=== PATIENT | female | born 1970 | race Caucasian/White ===

== ENCOUNTER 2018-01-31 21:19 | Observation (INO) ==
--- NOTE | 2018-01-31 21:27 | Emergency Department Note ---
Disposition Clinical Impression: Chest pain, Palpitations Disposition: Admitted As Inpatient Condition: Good Referrals: Juan Daniel Carl MD [Non-Partnered Physician] - Chest Pain HPI - General Chief Complaint: ED Chest Pain Stated Complaint: chest pain/palpitations Time Seen by Provider: 01/31/18 21:20 Source: patient Mode of arrival: ambulatory Limitations: no limitations Vital Signs Reviewed: Yes Nursing Notes Reviewed: Yes - History of Present Illness HPI Narrative: Patient presents with chest discomfort and palpitations. She had numerous biopsies done of her esophagus and her colon yesterday [facility]. These symptoms started about an hour ago. There is no radiation. She feels a little short of breath at times there is been no nausea or vomiting. There is been no radiation of pain and the patient is tearful upon arrival Upon further questioning patient says symptoms for several months. She had an episode where she was admitted at [place] emergency Department for a syncopal episode at work she says she is working double shifts and has no time off. All the symptoms started today according to her daughter after she was called by her work and they tried to get her to come in. She is tearful when talking about work she gets home late at night and has to get up at 5:00 to get to work and has virtually no time to rest. 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 Duration: constant Onset: during rest Pain Location: substernal Severity: mild Quality: tightness Pain Radiation: none Improves with: nothing Worsens with: nothing Associated symptoms: Reports: palpitations Treatments prior to arrival chest pain: none - Related Data Home Medications Medication Instructions Recorded Confirmed Dexlansoprazole [Dexilant] 30 mg PO BID 01/31/18 01/31/18 Famotidine [Acid Controller] 20 mg PO QAM 01/31/18 01/31/18 Paroxetine [Paxil] 40 mg PO DAILY 01/31/18 01/31/18 Allergies Allergy/AdvReac Type Severity Reaction Status Date / Time doxycycline Allergy Hives Verified 01/31/18 22:08 latex Allergy Swelling Verified 01/31/18 22:08 of the Eye tetanus and diphtheria Allergy Anaphylaxis Verified 01/31/18 22:08 toxoids All systems ED: reviewed and negative except as stated. Review of Systems: As Per HPI Constitutional: Denies: fever, chills, weakness, weight change Eyes: Denies: eye pain, eye discharge, vision change ENT ED: Denies: ear pain, throat pain, dental pain, hearing loss, epistaxis, congestion, dysphagia Cardiovascular: Reports: as per HPI, chest pain, palpitations Respiratory: Reports: as per HPI. Denies: cough, dyspnea, wheezes, hemoptysis, stridor Gastrointestinal: Denies: abdominal pain, nausea, vomiting, diarrhea, constipation, hematemesis, melena, hematochezia Genitourinary: Denies: dysuria, frequency, hematuria, discharge Musculoskeletal: Denies: back pain, neck pain, arthralgia, myalgia Integumentary: Denies: rash, abrasion, lesions Neurological: Denies: headache, weakness, numbness, paresthesias, confusion, abnormal gait, vertigo Psychiatric: Denies: anxiety, depression, suicidal thoughts, homicidal thoughts, auditory hallucinations, visual hallucinations Endocrine: Denies: fatigue Hematological/Lymphatic: Denies: easy bleeding, easy bruising Allergic/Immunologic: Denies: facial swelling, urticaria Chest Pain PMH - Past Medical History Medical history: Reports: GERD, hypertension Surgical history: Reports: cholecystectomy, other (Uterine ablation 2) Psychiatric history: Reports: depression - Social History Smoking Status: Never smoker Alcohol use: Reports: occasionally, recent Drug use: Reports: none Physical Exam - General Limitations: no limitations General appearance: alert, in no apparent distress - Head Head exam: atraumatic, normocephalic, normal inspection - Eye Eye exam: Present: normal appearance, PERRL, EOMI - ENT ENT exam: normal exam, normal oropharynx, mucous membranes moist - Neck Neck exam: Present: normal inspection, full ROM, trachea midline - Chest Chest inspection: Present: normal inspection, symmetric chest wall rise - Respiratory Respiratory exam: Present: normal lung sounds bilaterally - Cardiovascular Cardiovascular exam: Present: regular rate, normal rhythm, normal heart sounds - Abdominal Exam Abdominal exam: Present: soft, Non-Tender. Absent: tenderness, distention, guarding, rebound, rigidity - Extremities Exam Extremities exam: Present: normal inspection, full ROM. Absent: tenderness, pedal edema - Back Exam Back exam: Present: normal inspection - Neurological Exam Neurological exam: Present: alert, oriented X3 - Psychiatric Psychiatric exam: Present: anxious, other (tearful) - Skin Skin exam: Present: warm, dry, intact Chest Pain - [facility] Narrative Medical decision making narrative: I reviewed the patient's medication list Case was discussed with Dr. Antonio who graciously accepts admission. - Lab Data Lab results reviewed: Yes I reviewed the patient's lab results. - Radiology Data Radiology results reviewed: Yes I reviewed the patient's radiology results. - EKG Data EKG attestation: Yes I reviewed and interpreted this EKG. EKG results narrative: EKG shows sinus rhythm for line left axis deviation. No acute ST elevation. Ventricular rate is 76/m [place] interval 143 ms. QRS duration 93 ms QTc interval 390 ms QTc interval 421 ms. R axis -23 degrees
[2018-01-31] MEDS ORDERED: Aspirin 81 MG TAB.CHEW PO STA (21:29)
[2018-01-31] MEDS ORDERED: 0.9 % Sodium Chloride 1,000 ML IVC SCH ×2 (22:00→23:34)
[2018-01-31 22:02] LABS: Basophils # 0.1 K/mcL (0.0-0.2); Basophils % 0.6 %; Eosinophils # 0.2 K/mcL (0.0-0.6); Eosinophils % 2.4 %; Hemoglobin 11.9 g/dL (11.5-15.4); Immature Granulocytes % 0.2 % (0-4); Lymphocytes # 2.3 K/mcL (0.6-4.6); Lymphocytes % 23.8 %; Mean Corpuscular HGB Conc 33.1 g/dL (31.6-35.5); Mean Corpuscular Hemoglobin 28.7 pg (28.0-33.3); Mean Corpuscular Volume 86.7 fL (83.0-100.0); Mean Platelet Volume 8.7 fL (9.4-12.4); Monocytes # 0.7 K/mcL (0.0-1.3); Monocytes % 7.7 %; Neutrophils # 6.2 K/mcL (1.6-8.9); Platelet Count 318 K/mcL (140-400); Red Blood Count 4.15 M/mcL (3.82-4.97); Red Cell Distribution Width 13.4 % (11.5-14.5); Segmented Neutrophils % 65.3 %
[2018-01-31 22:18] LABS: Alanine Aminotransferase 20 Units/L (7-52); Albumin 3.6 g/dL (3.5-5.7); Albumin/Globulin Ratio 1.1 (1.1-2.2); Alkaline Phosphatase 53 Units/L (34-104); Aspartate Amino Transferase 17 Units/L (13-39); BUN/Creatinine Ratio 19 (6-26); Bilirubin,Total 0.3 mg/dL (0.3-1.0); Blood Urea Nitrogen 14 mg/dL (6-20); Carbon Dioxide 26 mEq/L (23-29); Chloride 105 mEq/L (98-107); Globulin 3.4 g/dL (2.4-3.5); Glucose 113 mg/dL (70-105); Osmolality,Calculated 289 (280-300); Potassium 4.1 mEq/L (3.5-5.1); Sodium 139 mEq/L (136-145); eGFR For Non-African Americans > 60 (> 60)
[2018-01-31 22:22] LABS: Troponin I < 0.03 ng/mL (< 0.04)
[2018-01-31] MEDS ORDERED: Naloxone 0.4 MG/ML INJ IVP PRN (23:34)
[2018-02-01] MEDS ORDERED: Ondansetron ODT 4 MG TAB.RAPDIS SL PRN (03:24)
[2018-02-01] MEDS ORDERED: Mag Hydrox/Al Hydrox/Simeth 30 ML UDC PO PRN (03:25)
[2018-02-01 06:21] LABS: Hematocrit 33.2 % (35.3-44.9); Hemoglobin 11.1 g/dL (11.5-15.4); Mean Corpuscular HGB Conc 33.4 g/dL (31.6-35.5); Mean Corpuscular Hemoglobin 29.1 pg (28.0-33.3); Mean Corpuscular Volume 87.1 fL (83.0-100.0); Mean Platelet Volume 8.8 fL (9.4-12.4); Platelet Count 297 K/mcL (140-400); Red Blood Count 3.81 M/mcL (3.82-4.97); Red Cell Distribution Width 13.5 % (11.5-14.5)
[2018-02-01] MEDS ORDERED: Famotidine 20 MG TABLET PO SCH (06:30)
[2018-02-01 06:44] LABS: BUN/Creatinine Ratio 20 (6-26); Blood Urea Nitrogen 13 mg/dL (6-20); Calcium 8.4 mg/dL (8.6-10.3); Carbon Dioxide 26 mEq/L (23-29); Chloride 106 mEq/L (98-107); Glucose 113 mg/dL (70-105); Osmolality,Calculated 289 (280-300); Potassium 3.7 mEq/L (3.5-5.1); Sodium 139 mEq/L (136-145); eGFR For Non-African Americans > 60 (> 60)
[2018-02-01] MEDS ORDERED: Acetaminophen 325 MG TABLET PO PRN (06:51)
[2018-02-01 10:37] VITALS: BP 111/70
--- NOTE | 2018-02-01 12:03 | Internal Med History&Physical ---
Date of Encounter: 02/01/18 Time of Encounter: 11:20 Assessment and Plan (1) Chest pain Current visit: Yes Status: Acute Repeat cardiac enzymes were ordered through emergency room. Qualifiers: Chest pain type: unspecified Qualified Code(s): R07.9 - Chest pain, unspecified (2) Anxiety and depression Current visit: Yes Status: Acute Continue Paxil (3) Hyperthyroidism Current visit: Yes Status: Suspected Suspected based on history. I told her she should follow-up as soon as possible with her PCP and/or specialist to get report of biopsies and start specific intervention as needed. Internal Medicine - H&P: HPI Chief complaint: Chest discomfort, palpitations Admitted From: Emergency Dept Plans for Post Hospital Care: Home History of present illness: Ms. Castillo is a 47 year old female who came to emergency room stating she had chest discomfort and palpitations. She describes the discomfort as a "heaviness" that is in her mid chest area. It is not consistently related to activity and does not radiate. She has occasional sensation of heart "fluttering" that is also not consistently related to activity. Came to emergency room and was evaluated and admitted to [facility] floor for ongoing care needs. Cardiovascular history is negative for documented hypertension PA heart failure angina DVT or pulmonary embolus. She has not had stress test or heart cath done. She reports having fine needle aspiration of her thyroid last week at [facility] for presumed hyperthyroxinemia. She reports 35 pound weight loss in the past 6 weeks, unintentionally. She reports frequent diarrhea and dysphagia. A barium swallow was done followed by EGD and colonoscopy with biopsies the next day. She does not have reports on these studies. She has family history of colon cancer. She had hepatic steatosis on CT in emergency room. She has had cholecystectomy. She denies other disorders of her liver or exocrine pancreas. Past Med Surg Social Fam HX - Past Medical History Medical history: GERD, hypertension Additional medical history: Skin CA Psychiatric history: depression - Past Surgical History Surgical History: cholecystectomy, other (Uterine ablation 2) Additional surgical history: Biopsy for skin CA. tubal ligation - Social History Smoking Status: Never smoker Alcohol use: occasionally, recent Drug use: none Internal Medicine - H&P: Meds Dexlansoprazole [Dexilant] 30 mg PO BID 01/31/18 [History] Famotidine [Acid Controller] 20 mg PO QAM 01/31/18 [History] Paroxetine [Paxil] 40 mg PO DAILY 01/31/18 [History] Allergy/AdvReac Type Severity Reaction Status Date / Time doxycycline Allergy Hives Verified 01/31/18 22:08 latex Allergy Swelling Verified 01/31/18 22:08 of the Eye tetanus and diphtheria Allergy Anaphylaxis Verified 01/31/18 22:08 toxoids All Systems PM: A 10-system review of systems was performed and is negative for pertinent findings except as documented above in the HPI. Review of systems: Gen.: She reports 35 pound weight loss in the past 6 weeks, unintentional Cardiovascular: As per history of present illness Respiratory: She is essentially a lifelong nonsmoker and has no known chronic lung disease. She has been recommended to have HENRY testing but has not completed it due to scheduling conflict. GI: As per history of present illness : She has had kidney stones remotely without recurrence. She denies other kidney or bladder disorders. Neurologic: She reports possible TIA almost 20 years ago with transient slurred speech and right face weakness. It resolved without recurrence. She denies large distribution strokes or seizures. She has had 3 syncopal episodes in the past year without workup. Endocrine: She was told in the past she had borderline diabetes. She had recent thyroid gland fine-needle aspiration procedure as per history of present illness. She denies known hyperlipidemia. Hematology/oncology: She has had melanoma resection surgery 3 times on her back. She denies internal malignancies or other blood disorders. Psychiatric: She has anxiety and depression denies other mental health issues. She states she is under significant stress at work and at home. 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 She denies other bone joint or muscle disorders. - Constitutional Vitals: Temp Pulse Resp BP Pulse Ox 97.8 F 82 13 111/70 95 02/01/18 10:35 02/01/18 10:35 02/01/18 10:35 02/01/18 10:35 02/01/18 10:35 Exam: Gen.: She is a well-developed overweight female lying in bed who appears in no severe distress at present time HEENT: Head is atraumatic and normocephalic. Eyes: EOMI. There is no scleral icterus. Mouth: Mucosa is moist. Neck: Supple and nontender. There is no thyromegaly or adenopathy noted. Heart: Regular without murmurs gallops or ectopics Lungs: No wheezes or crackles are heard. Abdomen: Soft and nontender. No masses or guarding are noted. Extremities: There is no cyanosis edema or clubbing noted. Dorsalis pedis and posterior tibial pulses are trace to 1+ palpable bilaterally. Neurologic: Mental status: She is talkative and a good historian. Cranial nerves: Smile is symmetric. Forehead wrinkles bilaterally. Tongue protrudes midline. EOMI. Motor: There is no pronator drift. Cerebellar: Finger to nose is intact bilaterally. Skin: Warm and dry Internal Med - H&P Results - Labs CBC & Chem 7: 02/01/18 06:08 02/01/18 06:08 Labs: Short CBC 01/31/18 02/01/18 Range/Units 21:57 06:08 WBC 9.4 8.0 (4.3-11.1) K/mcL Hgb 11.9 11.1 L (11.5-15.4) g/dL Hct 36.0 33.2 L (35.3-44.9) % Plt Count 318 297 (140-400) K/mcL Neutrophils # 6.2 (1.6-8.9) K/mcL BMP 01/31/18 02/01/18 21:57 06:08 Sodium 139 139 Potassium 4.1 3.7 Chloride 105 106 Carbon Dioxide 26 26 BUN 14 13 Creatinine 0.72 0.64 Glucose 113 H 113 H Calcium 9.0 8.4 L Cardiac Enzymes 01/31/18 02/01/18 02/01/18 Range/Units 21:57 01:49 06:08 Troponin I < 0.03 < 0.03 < 0.03 (< 0.04) ng/mL Liver Function 01/31/18 Range/Units 21:57 Total Bilirubin 0.3 (0.3-1.0) mg/dL AST 17 (13-39) Units/L ALT 20 (7-52) Units/L Alkaline Phosphatase 53 (34-104) Units/L Albumin 3.6 (3.5-5.7) g/dL - Impressions ITS Impressions Abdomen/Pelvis CT 01/31/18 21:24 IMPRESSION: No definite acute abnormality identified. 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 Correlation with any old examinations would be helpful, and also correlate with left flank pain. Consider nonemergent urologic consultation. 1.9 cm benign-appearing left adnexal cyst. Assuming this patient is premenopausal, based on the most recent recommendations, no further follow-up of that is necessary. See below. RECOMMENDATIONS: Managing Incidental Adnexal Cystic Mass by CT or MR Probably benign cyst : {benign appearing except demonstrates one or more of the following - (a) angulated margin, (b) not round/oval shape, (c) not well imaged due to artifact or technical parameters (ex. noncontrast CT)} Premenopausal (< than or equal to 50 years if LMP unknown) < or equal to 3 cm: no follow up 3-5 cm: US in 6-12 weeks >5 cm: US Early postmenopausal < or equal to 3 cm: no follow up >3 cm: US promptly Late postmenopausal < or equal to 1 cm: no follow up >1 cm: US Reference: Masood et al. Managing Incidental Findings on Abdominal CT: White Paper of the ACR Incidental Findings Committee. J Am Cassius Radiol 2010;7:754-773 D/ / Kash Berumen MD / Kash Berumen MD Interpreting Provider: Kash Berumen MD Chest CT 01/31/18 21:24 IMPRESSION: No acute cardiopulmonary findings. D/ / 01/31/2018 22:23:30 Tez Noble / chanda Interpreting Provider: Tez Noble
--- NOTE | 2018-02-01 12:24 | Discharge Summary ---
Date of Encounter: 02/01/18 Time of Encounter: 11:20 - Discharge Diagnosis (1) Chest pain Priority: Primary Status: Acute Qualifiers: Chest pain type: unspecified Qualified Code(s): R07.9 - Chest pain, unspecified (2) Anxiety and depression Priority: Secondary Status: Acute (3) Hyperthyroidism Priority: Secondary Status: Suspected Hospital course: Ms. Castillo is a 47 year old female who came to emergency room stating she had chest discomfort and palpitations. She describes the discomfort as a "heaviness" that is in her mid chest area. It is not consistently related to activity and does not radiate. She has occasional sensation of heart "fluttering" that is also not consistently related to activity. She reported it had been present for approximately 2 months. She came to emergency room and was evaluated and admitted to [facility] for ongoing care needs. Initial orders were written by the emergency room physician. CT of chest abdomen and pelvis in emergency room showed no worrisome pathology. I saw her on and performed a history and physical. Repeat cardiac enzymes showed no evidence of myocardial damage. When I saw her she felt improved. Her EKG did not show significant abnormality. I felt she likely had hyperthyroidism. I told her to follow with her PCP and/or specialist as soon as possible to get thyroid FNA biopsy reports and begin definitive treatment as needed. I felt she was stable for discharge home. She will be started on Toprol-XL 12.5 mg daily to lessen the sensation of palpitations. She can return to work February 03. She will follow with her PCP within 1 week. - Time Spent with Patient Total time spent providing and/or coordinating discharge services: - Discharge Medications Prescriptions: Metoprolol XL (24 HR) Succ [Toprol XL] 12.5 mg PO DAILY #15 tab.er.24h Home Medications: Dexlansoprazole [Dexilant] 30 mg PO BID 01/31/18 [History] Famotidine [Acid Controller] 20 mg PO QAM 01/31/18 [History] Paroxetine [Paxil] 40 mg PO DAILY 01/31/18 [History] Metoprolol XL (24 HR) Succ [Toprol XL] 12.5 mg PO DAILY #15 tab.er.24h 02/01/18 [Rx] Allergies/Adverse Reactions: Allergy/AdvReac Type Severity Reaction Status Date / Time doxycycline Allergy Hives Verified 01/31/18 22:08 latex Allergy Swelling Verified 01/31/18 22:08 of the Eye tetanus and diphtheria Allergy Anaphylaxis Verified 01/31/18 22:08 toxoids Date of admission: 01/31/18 23:04 Primary care physician: Jackson Salazar - Constitutional Vitals: Temp Pulse Resp BP Pulse Ox 97.8 F 82 13 111/70 95 02/01/18 10:35 02/01/18 10:35 02/01/18 10:35 02/01/18 10:35 02/01/18 10:35 - Patient Status Disposition: Home, Self-Care Condition: Good - Discharge Instructions Follow Up With: Jackson Salazar [Primary Care Provider] - 1 week - Diet and Activity Activity: resume usual activities as tolerated Diet: advance to your usual diet
--- NOTE | 2018-02-01 21:02 | Electrocardiograph Report ---
[address] [address] Test Date: 2018-02-01 Pat Name: Adrianne Castillo Department: [id number] Room: [facility] Gender: F Square [employer] Caller: Smith : 1970 Requested By: Deep Call Order Number: [id number] Reading MD: Kristine Irizarry Measurements Intervals [place] Rate: 77 P: 35 FL: 130 QRS: -16 QRSD: 102 T: 11 QT: 403 QTc: 435 Interpretive Statements SINUS RHYTHM LOW QRS VOLTAGE IN PRECORDIAL LEADS [QRS DEFLECTION < 1.0 mV IN CHEST LEADS] Electronically Signed On 02-01-2018 21:00:44 EDT by Kristine Irizarry
--- NOTE | 2018-02-01 21:05 | Electrocardiograph Report ---
[address] [place], [place] [address] Test Date: 2018-01-31 Pat Name: Adrianne Castillo Department: [id number] Room: [facility] Gender: F Admeasurer: [id number] : 1970 Requested By: Deep Call Order Number: [id number] Reading MD: Kristine Irizarry Measurements Intervals [place] Rate: 76 P: 28 GA: 143 QRS: -23 QRSD: 93 T: 5 QT: 390 QTc: 421 Interpretive Statements SINUS RHYTHM BORDERLINE LEFT AXIS DEVIATION Electronically Signed On 02-01-2018 21:03:14 EDT by Kristine Irizarry
== END 2018-02-01 13:05 | disposition home or self-care (01) ==
LOC: EMEROOPIK 21:19 → INPPIK 21:19
PROVIDERS: ADMIT Internal Medicine; ATTEND Internal Medicine